=== PATIENT | female | born 1970 | race Caucasian/White ===

== ENCOUNTER 2021-12-15 15:00 | Outpatient (RCR) | payer SELFPAY | END 2022-02-16 16:36 | disposition home or self-care (01) | PROVIDERS: Visit Provider Orthopaedic Surgery | DX: S82.001D Unspecified fracture of right patella, subsequent encounter for closed fracture with routine healing (principal); Z51.89 Encounter for other specified aftercare | CPT/HCPCS: 97110; 97116; 97161 ==